=== PATIENT | female | born 1940 | race Two or more races ===

== ENCOUNTER 2017-10-08 14:33 | Outpatient (CLI) | payer MEDICARE, OTHER ==
--- NOTE | 2017-10-09 12:02 | Diagnostic Imaging Report ---
Indication: COUGH Technique: 2 views of the chest Comparison: none. Findings: Lungs and pleural spaces are clear. Heart size is normal. Bones are unremarkable.. Impression: No acute process
== END 2017-10-08 16:33 | disposition home or self-care (01) ==
LOC: RAD 14:33
DX: R05 Cough (principal)
CPT/HCPCS: 71020